=== PATIENT | female | born 1980 | race Caucasian/White ===

== ENCOUNTER 2016-08-07 10:21 | Day surgery (SDC) | payer OTHER ==
[2016-08-06 13:17] VITALS: Ht 157.5 cm; Wt 100.0 kg
--- NOTE | 2016-08-06 18:00 | PREOPHP ---
DATE OF ADMISSION: 08/07/2016 REASON FOR ADMISSION: Laparoscopic tubal ligation. HISTORY OF PRESENT ILLNESS: This is a 36-year-old female, 3, para 3, who has requested ster ilization on the basis of multiparity. The alternatives to this, the benefits to the method, the ri sks and possible complications as well as 1% failure rate was discussed with the patient in the offi ce at great length. All her questions were answered to her satisfaction, and she signed the [facility] surgical informed consents. PAST MEDICAL HISTORY: The patient denies any medical problems including heart disease, hypertension , diabetes, renal disease, liver disease, thyroid disease, or neurological problems. ALLERGIES: SHE HAS NO KNOWN ALLERGIES. MEDICATIONS: She takes no medications on a regular basis. FAMILY HISTORY: Noncontributory. OBSTETRICAL HISTORY: The patient had 3 pregnancies and 3 vaginal deliveries. REVIEW OF SYSTEMS: Noncontributory. PHYSICAL EXAMINATION: GENERAL: Well-developed, obese, in no distress, alert and oriented x3. VITAL SIGNS: Her height is 5 feet 2 inches and weight is 229 pounds with BMI of 37. Vital signs sh owed the temperature to be 98, blood pressure 116/71, respirations 20 per minute, and pulse is 80 pe r minute, regular. HEENT: Within normal limits. Pupils are PERRLA. NECK: Supple. Thyroid is nonpalpable. There is no lymphadenopathy. BREASTS: The patient is lactating. There are no masses. LUNGS: Clear to percussion and auscultation. HEART: Normal sinus rhythm without a murmur. ABDOMEN: Soft, obese. PELVIC: Normal external genitalia. The vagina is normal. The cervix is normal without lesions. U terus small, midline. There are no adnexal masses. EXTREMITIES: Within normal limits. NEUROLOGIC: Also normal. IMPRESSION: 1. Multiparity. The patient desires sterilization. 2. Obesity. PLAN: The patient is to be operated on tomorrow 08/07/2016. Dictated By: MARY EDWARD/RICKI Conf#: [id number] DID#: [id number]
[~2016-08-07] VITALS: Ht 157.5 cm; Wt 100.0 kg
[2016-08-07] VITALS (10 sets, daily range): BP systolic 97–133; BP diastolic 54–80; PULSE 60–76; RESP 12–22
[2016-08-07] MEDS ORDERED: ROCURONIUM 50 MG INJ ONE (12:57)
[2016-08-07] MEDS ORDERED: FENTAnyl 50 MCG/ML VIAL ONE (12:57)
[2016-08-07] MEDS ORDERED: MIDAZOLAM 1 MG/ML 2 ML INJ ONE (12:57)
[2016-08-07] MEDS ORDERED: PROPOFOL 20 ML ONE ×2 (12:57→13:57)
[2016-08-07] MEDS ORDERED: BUPIVACAINE 0.5%/EPI (SDV) 30 ML INJ ONE (13:18)
--- NOTE | 2016-08-07 13:37 | RADRPT ---
Vent Rate: 61 bpm RR Interval: 0 msec ME Interval: 180 msec QRS Duration: 90 msec QT Interval: 414 msec QTC Interval: 416 msec P-R-T Mccune: 55 - 72 - 14 degrees Normal sinus rhythm Normal ECG Electronically Signed By: Wiley Vicente [id number]
[2016-08-07] MEDS ORDERED: ONDANSETRON 4 MG INJ ONE (13:41)
[2016-08-07] MEDS ORDERED: CEFAZOLIN 1 GM INJ ONE (13:41)
[2016-08-07] MEDS ORDERED: SUCCINYLCHOLINE CHLORIDE 100 MG/5 ML SYG IV ONE (13:41)
[2016-08-07] MEDS ORDERED: NEOSTIGMINE 3 MG/3 ML SYRINGE ONE (13:41)
[2016-08-07] MEDS ORDERED: GLYCOPYRROLATE 0.4 MG INJ ONE (13:41)
[2016-08-07] MEDS ORDERED: METOCLOPRAMIDE 10 MG INJ ONE (13:41)
[2016-08-07] MEDS ORDERED: KETOROLAC 30 MG INJ ONE (13:42)
[2016-08-07] MEDS ORDERED: DEXAMETHASONE 4 MG/ML 1 ML INJ ONE (13:42)
[2016-08-07] MEDS ORDERED: DIPHENHYDRAMINE 50 MG INJ IV PRN (14:00)
[2016-08-07] MEDS ORDERED: HYDROmorphONE (0.2 MG/ML) 10ML SYG IV PRN ×2 (14:00)
[2016-08-07] MEDS ORDERED: MEPERIDINE 25 MG INJ IV PRN (14:00)
[2016-08-07] MEDS ORDERED: ONDANSETRON 4 MG INJ IV PRN ×2 (14:00→14:30)
[2016-08-07] MEDS ORDERED: EPHEDrine SULFATE 50 MG/5 ML SYG IV PRN (14:00)
[2016-08-07] MEDS ORDERED: morphine (1 MG/ML) 10ML SYRINGE IV PRN ×3 (14:00)
--- NOTE | 2016-08-07 14:04 | PD.PPDC ---
BOTTLE [employer] Discharge Instruction Diagnosis Final Diagnosis: Multiparity.Obesity. 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
[2016-08-07] MEDS ORDERED: LACTATED RINGER'S 1,000 ML IV SCH (14:05)
[2016-08-07] MEDS ORDERED: OXYCODONE/ACETAMINOPHEN (5/325) TAB PO PRN ×2 (14:30)
[2016-08-07] MEDS ORDERED: morphine 2 MG INJ IV PRN (14:30)
[2016-08-07] MEDS ORDERED: IBUPROFEN 600 MG TAB PO PRN (14:30)
[2016-08-07] MEDS ORDERED: ACETAMINOPHEN 325 MG TAB PO PRN (14:30)
--- NOTE | 2016-08-07 15:13 | OPR ---
DATE OF OPERATION: PROCEDURE: Laparoscopy and bilateral tubal ligation. PREOPERATIVE DIAGNOSIS: Multiparity, obesity. POSTOPERATIVE DIAGNOSIS: Multiparity, obesity. ANESTHESIA: General. ANESTHESIOLOGIST: Dr. Rios. SURGEON: Mary Hall MD COMPLICATIONS: None. SPECIMENS: None. ESTIMATED BLOOD LOSS: Negligible. PROCEDURE AND FINDINGS: With the patient under general anesthesia by , she was laid on the table in the dorsal lithotomy position. Her abdomen and upper thighs were prepped with ChloraPrep and the perineum and vagina with Betadine, and after 3 minutes draped in the usual sterile fashion for this procedure. A small 5-mm incision was done at the level of the umbilicus. Through this a Veress needle was inserted while we were tenting up the anterior abdominal wall. The tip of the needle was ascertained to be intraperitoneal by the hanging drop saline technique and it was connected to the CO2 insufflator. Good pneumoperitoneum was obtained and the needle was removed. A 5-mm trocar was passed in. Through this trocar now a 5-mm laparoscope with the endocamera was inserted. The patient was placed in slight Trendelenburg position. A second puncture with a 5-mm trocar was inserted in the midline in the hypogastric area under direct vision without any problems. Through this second port a Kleppinger clamp was inserted and this was attached to the gyrus device at 35 waters of current. The right tube was identified and then burned in its midportion for about a cm and a half through and through. The same was done on the contralateral side. Pictures were taken for documentation. There was no active bleeding. All the instruments were then removed from the patient's abdomen, as well as as much CO2 as possible. The incisions were infiltrated with 0.5% Marcaine with epinephrine, a total of 20 mL. They were closed with 4- 0 Monocryl. Band-Aids were applied and the patient was taken to the recovery room with all vital signs stable. EBL was negligible. Needle, sponge, instrument counts at the end of the procedure were correct twice. Dictated By: MARY EDWARD/RICKI Conf#: [id number] DID#: [id number] [facility]
== END 2016-08-07 16:00 | disposition home or self-care (01) ==
LOC: SDS 10:21
PROVIDERS: ATTEND Specialist
DX: Z30.2 Encounter for sterilization (principal); E66.9 Obesity, unspecified; Z68.41 Body mass index [BMI] 40.0-44.9, adult; E03.9 Hypothyroidism, unspecified
CPT/HCPCS: 58670; 84703; 93005; J0330; J0690; J1100; J1885; J2250; J2405; J2710; J2765; J3010; Z7512; Z7610